=== PATIENT | male | born 1955 | race American Indian/Alaskan Native ===

== ENCOUNTER 2021-12-08 07:34 | Day surgery (SDC) | payer MEDICARE, OTHER ==
[2021-12-08] MEDS ORDERED: ASPIRIN EC 81 MG TAB PO ONE (08:20)
[2021-12-08 08:27] LABS: Basophils # (Auto) 0.1 K/mm3 (0.0-0.1); Basophils % (Auto) 0.7 % (0.0-1.8); Eosinophils # (Auto) 0.1 K/mm3 (0.0-0.4); Eosinophils % (Auto) 1.6 % (0.0-4.3); Hematocrit 47.1 % (35.5-45.6); Hemoglobin 15.9 gm/dl (11.8-15.2); Lymphocytes # (Auto) 2.7 K/mm3 (1.2-5.4); Lymphocytes % (Auto) 31.5 % (13.4-35.0); Mean Corpuscular HGB Conc 34 % (32-34); Mean Corpuscular Volume 84 fl (84-94); Monocytes # (Auto) 0.9 K/mm3 (0.0-0.8); Monocytes % (Auto) 10.3 % (0.0-7.3); Platelet Count 182 K/mm3 (140-440); Red Blood Count 5.61 M/mm3 (3.65-5.03); Red Cell Distribution Width 15.8 % (13.2-15.2)
[2021-12-08 08:44] LABS: BUN/Creatinine Ratio 14; Blood Urea Nitrogen 19 mg/dL (9-20); Calcium 8.6 mg/dL (8.4-10.2); Hemolysis Index 9
[2021-12-08 08:51] LABS: INR 0.89 (0.87-1.13)
[2021-12-08 08:53] LABS: Partial Thromboplastin Time 25.6 Sec. (24.2-36.6)
[2021-12-08] MEDS ORDERED: SODIUM CHLORIDE 0.9% 500 ML 500 ML IV SCH (09:00)
[2021-12-08] MEDS ORDERED: HEPARIN 10,000 UNITS/10 ML VIAL ONE (09:28)
[2021-12-08] MEDS ORDERED: NITROGLYCERIN SYRINGE 3 ML ONE (09:28)
[2021-12-08] MEDS ORDERED: VERAPAMIL 5 MG/2 ML INJ ONE (09:28)
[2021-12-08] MEDS ORDERED: HEPARIN/NS 5000 UNIT/500ML 1,000 ML IR ONE (09:28)
[2021-12-08] MEDS ORDERED: LIDOCAINE (1%) 10 MG/1 ML VIAL 20 ML MDV ONE (09:29)
[2021-12-08] MEDS ORDERED: MIDAZOLAM 2 MG/2 ML INJ ONE (09:47)
[2021-12-08] MEDS ORDERED: fentaNYL 100 MCG/2 ML INJ ONE (09:47)
[2021-12-08] MEDS ORDERED: ASPIRIN 81 MG TAB CHEW PO SCH (10:00)
--- NOTE | 2021-12-08 10:43 | Cardiac Catherization Report ---
DATE OF SERVICE: 12/08/2021 CARDIAC CATHETERIZATION REPORT REASON FOR PROCEDURE: Chest pain and abnormal thallium stress test. PROCEDURES: 1. Left heart catheterization. 2. Selective left and right coronary angiography. 3. Left ventricular angiography. 4. Sedation time start 9:56, end 10:06. DESCRIPTION OF PROCEDURE: The patient was prepped and draped in a sterile fashion after informed consent. Due to the finding of borderline increased creatinine of 1.4, we discussed additional risks of contrast nephropathy. The patient underwent additional intravenous hydration prior to the procedure. Visipaque was selected for coronary angiography. The right radial cath site was prepped and draped after negative Caleb's test. The right radial artery was entered using Seldinger technique followed by placement of a 6-Czech hydrophilic sheath. Selective left and right coronary angiography was performed using #3.5 left Cookie and a #4 right Cookie. The right Cookie was used for left ventricular angiography using a hand injection. The catheters were then removed, sheath removed and hemostasis achieved using a TR band. The patient was returned to the postprocedure unit in stable condition. There were no complications. FINDINGS: HEMODYNAMICS: Left ventricular end-diastolic pressure was 28, following coronary angiography. Ascending aortic pressure was 155/97. There was no significant pressure gradient on pullback across the aortic valve. CORONARY ANGIOGRAPHY: There was diffuse mild ectasia of both left and right coronary arteries. The left main coronary artery was short and free of significant disease. The left anterior descending artery contained mild luminal irregularities, in association with diffuse mild ectasia. No significant coronary lesions were noted. A medium-size ramus intermedius artery also contained mild luminal irregularities, associated with mild diffuse ectasia. The circumflex artery and its obtuse marginal branches contained mild diffuse ectasia, associated with mild diffuse luminal irregularities. No significant obstructive coronary lesions. The right coronary artery was dominant. This vessel similarly contained diffuse mild atherosclerosis associated with diffuse mild ectasia. No significant obstructive coronary lesions noted in this system. There was normal left ventricular systolic function with ejection fraction estimated at 60%. CONCLUSION: 1. Mild diffuse coronary ectasia, associated with mild diffuse coronary atherosclerosis. No significant obstructive coronary lesions. 2. Well-preserved left ventricular systolic function, ejection fraction 60%. RECOMMENDATIONS: Aggressive risk factor modification and medical therapy. TID: [id number] RECEIPT: [id number] DEYANIRA/ARLENE
[2021-12-08] MEDS ORDERED: traMADol 50 MG TAB PO PRN (11:17)
--- NOTE | 2021-12-08 11:19 | Discharge Summary ---
Short Stay Discharge Plan Activity: advance as tolerated Weight Bearing Status: Full Weight Bearing Diet: low fat, low cholesterol, low salt Wound: keep clean and dry Special Instructions: smoking cessation, no heavy lifting (3 days) Follow up with: DARRIN GONZALEZ MD [Primary Care Provider] - 7 Days LUCY NAVARRETE MD [Staff Physician] - 7 Days
--- NOTE | 2021-12-08 11:27 | Electrocardiograph Report ---
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
[2021-12-08] MEDS ORDERED: SODIUM CHLORIDE 0.9% 1000 ML 1,000 ML IV SCH (11:30)
[2021-12-08 15:17] VITALS: BP 142/70
== END 2021-12-08 07:35 | disposition home or self-care (01) ==
LOC: CATHLABREC 07:34
PROVIDERS: ATTEND Internal Medicine Cardiovascular Disease
DX: R07.89 Other chest pain (principal); R94.39 Abnormal result of other cardiovascular function study; I25.10 Atherosclerotic heart disease of native coronary artery without angina pectoris; E78.00 Pure hypercholesterolemia, unspecified; I10 Essential (primary) hypertension; G47.30 Sleep apnea, unspecified; M19.90 Unspecified osteoarthritis, unspecified site; F32.9 Major depressive disorder, single episode, unspecified; F41.9 Anxiety disorder, unspecified; Z79.899 Other long term (current) drug therapy; Z87.891 Personal history of nicotine dependence; Z98.890 Other specified postprocedural states; J44.9 Chronic obstructive pulmonary disease, unspecified; Z82.49 Family history of ischemic heart disease and other diseases of the circulatory system
CPT/HCPCS: 36415; 80048; 85025; 85610; 85730; 93005; 93458; 99156; C1894; J1644; J1815; J2250; J3010; J3490; J7040; Q9967